=== PATIENT | female | born 1945 | race Caucasian/White ===

== ENCOUNTER → 2017-07-20 | Outpatient (CLI) | payer OTHER ==
--- NOTE | 2017-07-20 14:14 | MAMMOGRAPHY REPORT ---
BILATERAL DIGITAL SCREENING MAMMOGRAM WITH CAD: 07/20/2017 CLINICAL HISTORY: Routine screening. Patient has no complaints. TECHNIQUE: Current study was also evaluated with a Computer Aided Detection (CAD) system. Bilateral CC and MLO views were obtained. COMPARISON: Comparison is made to exams dated: 07/19/2016 mammogram, 07/15/2015 mammogram, 07/11/2014 m ammogram, 07/03/2013 mammogram, 07/04/2012 ultrasound, and 07/04/2012 mammogram - [facility]. BREAST COMPOSITION: There are scattered areas of fibroglandular density in both breasts. FINDINGS: No suspicious masses, calcifications, or areas of architectural distortion are noted in ei ther breast. There has been no significant interval change compared to prior exams. Focal asymmetry in the right medial breast is stable dating back to at least 2007 exam. IMPRESSION: ACR BI-RADS CATEGORY 2: BENIGN There is no mammographic evidence of malignancy. A 1 year screening mammogram is recommended. The pa tient will receive written notification of the results. Approximately 10% of breast cancers are not detected with mammography. A negative mammographic report should not delay biopsy if a clinically suggestive mass is present. Amparo Crow M.D. /:07/20/2017 09:59:47 Control Room Tender: Yvonne MOORER, M, [facility] letter sent: Normal 1/2 BI-RADS Code: ACR BI-RADS Category 2: Benign
== END | disposition home or self-care (01) ==
LOC: C.MAMM 09:14
PROVIDERS: ATTEND Family Medicine
DX: Z12.31 Encounter for screening mammogram for malignant neoplasm of breast (principal)

== ENCOUNTER 2018-01-12 15:49 | Observation (INO) | payer OTHER ==
[~2018-01-12] VITALS: Ht 157.5 cm; Wt 73.1 kg
[2018-01-12] MEDS ORDERED: LABETALOL HCL IV 5 MG/ML 20ML IV ONE (16:07)
--- NOTE | 2018-01-12 16:17 | EMERGENCY ROOM VISIT NOTE ---
History Report prepared by Gregoria: Donnie Santana Under the Supervision of: Dr. Wood Alvarado M.D. First contact with patient: 15:58 Chief Complaint: STROKE SYMPTOMS Stated Complaint: MEMORY LOSS OVER TRAMATIC NEWS History of Present Illness The patient is a 72 year old female who presents to the Emergency Room with complaints of constant memory loss for the past two hours. The patient's daughters state that the patient's nephew today, and the patient found out around 1115, and then she drove to her sister's house during which she made multiple phone calls. When she got there she was acting normally, though when she got home around 1400 the patient did not remember driving, where she was, what she was doing, and she does not remember her nephew dying. The daughters state that the patient has been persistently asking if her nephew has . The daughters state that the patient's memory is improved with calming down, though when she gets worked up her memory gets worse again. The daughters state that the patient has not had any issues with her speech or with facial drooping. She does not have any weakness, though she feels "foggy". The patient does not have any significant past medical history, and she has been doing well the past few days. The daughters state that the patient has never had a problem with grief in the past. The patient is not on any blood thinners. Source of History: patient, family Onset: two hours ago Position: other (global) Quality: other (memory loss) Timing: constant Modifying Factors (Worsening): other (getting worked up) Modifying Factors (Relieving): other (calming down) Associated Symptoms: No weakness Note: Associated symptoms: Feels foggy Review of Systems See HPI for pertinent positives & negatives. A total of 10 systems reviewed and were otherwise negative. Past Medical & Surgical Medical Problems: (1) Amnesia Social History Smoking Status: Never Smoker Marital Status: Housing Status: lives with family Occupation Status: retired Current/Historical Medications Scheduled Aspirin (Aspirin Ec), 81 MG PO DAILY Atorvastatin (Lipitor), 10 MG PO DAILY Loratadine (Claritin), 10 MG PO DAILY Multivitamins/Minerals (Mvi With Minerals), 1 TAB PO DAILY Allergies Coded Allergies: Mercury (Verified Allergy, Intermediate, URBINA EYES, 01/12/18) Physical Exam Vital Signs Date Time Temp Pulse Resp B/P (MAP) Pulse Ox O2 Delivery O2 Flow Rate FiO2 01/12/18 18:49 68 175/91 96 Room Air 01/12/18 18:01 69 20 183/92 95 Room Air 01/12/18 17:41 72 20 182/94 95 Room Air 01/12/18 17:16 69 20 169/89 92 Room Air 01/12/18 17:01 70 20 200/114 94 Room Air 01/12/18 16:46 65 18 195/103 91 Room Air 01/12/18 16:28 94 Room Air 01/12/18 16:24 63 20 193/88 94 Room Air 01/12/18 16:02 76 01/12/18 15:54 36.7 69 18 229/97 96 Room Air Physical Exam GENERAL: Patient is in no acute distress. HEENT: No acute trauma, normocephalic atraumatic, mucous membranes moist, no nasal congestion, no scleral icterus. NECK: No stridor, no adenopathy, no meningismus, trachea is midline. LUNGS: Clear to auscultation bilaterally, no wheeze, no rhonchi, breath sounds equal. HEART: Without murmurs gallops or rubs, regular rate and rhythm. ABDOMEN: Soft, nontender, bowel sounds positive, no hernias, no peritonitis. EXTREMITIES: No cyanosis or edema, full range of motion of all the joints without pain or difficulty, no signs for acute trauma. NEUROLOGIC: Does not know the day, the year, or the President. Was able to state her name. No pronator drift or cerebellar dysfunction. No speech slur or facial droop. SKIN: No rash, no jaundice, no diaphoresis. Medical Decision & Procedures ER Provider Diagnostic Interpretation: Radiology results as stated below per my review and radiologist interpretation: CT OF THE HEAD WITHOUT CONTRAST CLINICAL HISTORY: Acute memory loss. COMPARISON STUDY: No previous studies for comparison. CT DOSE: 537.48 mGy.cm TECHNIQUE: Helical axial images of the head were obtained without IV contrast. Automated exposure control was utilized for the study. A dose lowering technique was utilized adhering to the principles of ALARA. FINDINGS: No acute intracranial hemorrhage, midline shift or mass effect is present. Ventricular system is normal. Basilar cisterns are patent. There are no extra-axial collections. Nesbitt-white differentiation is maintained. There are no findings to suggest acute dural sinus thrombosis or acute territorial infarct. There are no significant calvarial abnormalities. Visualized portions of the sinuses and the mastoid air cells are clear. IMPRESSION: No acute intracranial findings. Electronically signed by: Juan Kimble M.D. 01/12/2018 4:22 PM Dictated Date/Time: 01/12/2018 4:20 PM Laboratory Results 01/12/18 16:11 Red Blood Count 4.31, Mean Corpuscular Volume 93.7, Mean Corpuscular Hemoglobin 33.2, Mean Corpuscular Hemoglobin Concent 35.4, Mean Platelet Volume 10.5, Neutrophils (%) (Auto) 73.7, Lymphocytes (%) (Auto) 18.9, Monocytes (%) (Auto) 6.1, Eosinophils (%) (Auto) 0.7, Basophils (%) (Auto) 0.2, Neutrophils # (Auto) 4.09, Lymphocytes # (Auto) 1.05, Monocytes # (Auto) 0.34, Eosinophils # (Auto) 0.04, Basophils # (Auto) 0.01 01/12/18 16:11 Test 01/12/18 16:05 01/12/18 16:11 01/12/18 16:15 01/12/18 18:15 Bedside Glucose 125 mg/dl (70-90) White Blood Count 5.55 K/uL (4.8-10.8) Red Blood Count 4.31 M/uL (4.2-5.4) Hemoglobin 14.3 g/dL (12.0-16.0) Hematocrit 40.4 % (37-47) Mean Corpuscular Volume 93.7 fL (80-100) Mean Corpuscular Hemoglobin 33.2 pg (25-34) Mean Corpuscular Hemoglobin Concent 35.4 g/dl (32-36) Platelet Count 271 K/uL (130-400) Mean Platelet Volume 10.5 fL (7.4-10.4) Neutrophils (%) (Auto) 73.7 % Lymphocytes (%) (Auto) 18.9 % Monocytes (%) (Auto) 6.1 % Eosinophils (%) (Auto) 0.7 % Basophils (%) (Auto) 0.2 % Neutrophils # (Auto) 4.09 K/uL (1.4-6.5) Lymphocytes # (Auto) 1.05 K/uL (1.2-3.4) Monocytes # (Auto) 0.34 K/uL (0.11-0.59) Eosinophils # (Auto) 0.04 K/uL (0-0.5) Basophils # (Auto) 0.01 K/uL (0-0.2) RDW Standard Deviation 42.3 fL (36.4-46.3) RDW Coefficient of Variation 12.4 % (11.5-14.5) Immature Granulocyte % (Auto) 0.4 % Immature Granulocyte # (Auto) 0.02 K/uL (0.00-0.02) Prothrombin Time 10.1 SECONDS (9.0-12.0) Prothromb Time International Ratio 1.0 (0.9-1.1) Activated Partial Thromboplast Time 24.9 SECONDS (21.0-31.0) Partial Thromboplastin Ratio 1.0 Est Creatinine Clear Calc Drug Dose 41.2 ml/min Estimated GFR () 54.1 Estimated GFR (Non- 46.7 BUN/Creatinine Ratio 16.7 (10-20) Calcium Level 9.6 mg/dl (8.5-10.1) Magnesium Level 2.4 mg/dl (1.8-2.4) Total Bilirubin 0.9 mg/dl (0.2-1) Direct Bilirubin 0.2 mg/dl (0-0.2) Aspartate Amino Transf (AST/SGOT) 19 U/L (15-37) Alanine Aminotransferase (ALT/SGPT) 29 U/L (12-78) Alkaline Phosphatase 95 U/L (45-117) Total Creatine Kinase 234 U/L (26-192) Creatine Kinase MB 2.2 ng/ml (0.5-3.6) Creatine Kinase MB Ratio 0.9 (0-3.0) Troponin I 0.015 ng/ml (0-0.045) Total Protein 8.0 gm/dl (6.4-8.2) Albumin 4.1 gm/dl (3.4-5.0) Bedside Hemoglobin 14.3 g/dl (12.0-16.0) Bedside Hematocrit 42 % (37-47) Bedside Sodium 141 mEq/L (135-144) Bedside Potassium 3.8 mEq/L (3.3-5.0) Bedside Chloride 104 mEq/L (101-112) Bedside Total CO2 25 mEq/l (24-31) Anion Gap 17.0 mmol/L (16-25) Bedside Blood Urea Nitrogen 21 mg/dl (7-18) Bedside Creatinine 1.1 mg/dl (0.6-1.3) Bedside Glucose (other) 133 mg/dl (70-99) Bedside Ionized Calcium (Belkys) 1.19 mmol/l (1.12-1.32) Urine Color YELLOW Urine Appearance CLEAR (CLEAR) Urine pH 6.0 (4.5-7.5) Urine Specific [place] 1.011 (1.000-1.030) Urine Protein NEG (NEG) Urine Glucose (UA) NEG (NEG) Urine Ketones NEG (NEG) Urine Occult Blood NEG (NEG) Urine Nitrite NEG (NEG) Urine Bilirubin NEG (NEG) Urine Urobilinogen NEG (NEG) Urine Leukocyte Esterase NEG (NEG) Urine Opiates Screen NEG (NEG) Urine Methadone, Qualitative NEG (NEG) Urine Barbiturates NEG (NEG) Urine Phencyclidine (PCP) Level NEG (NEG) Ur Amphetamine/Methamphetamine NEG (NEG) MDMA (Ecstasy) Screen NEG (NEG) Urine Benzodiazepines Screen NEG (NEG) Urine Cocaine Metabolite NEG (NEG) Urine Marijuana (THC) NEG (NEG) Laboratory results reviewed by me. Medications Administered Medications (Trade) Dose Ordered Sig/Billie Route Start Time Stop Time Status Last Admin Dose Admin Labetalol HCl (Normodyne IV) 5 mg STK-MED ONCE IV 01/12/18 16:07 01/12/18 16:08 DC 01/12/18 16:12 20 MG Hydralazine HCl (HydrALAZINE INJ) 10 mg NOW STAT IV 01/12/18 16:57 01/12/18 16:58 DC 01/12/18 17:02 10 MG Lorazepam (Ativan Inj) 0.5 mg NOW STAT IV 01/12/18 17:29 01/12/18 17:30 DC 01/12/18 17:41 0.5 MG Sodium Chloride 500 ml @ 999 mls/hr Q31M STAT IV 01/12/18 17:31 01/12/18 18:01 DC 01/12/18 17:41 999 MLS/HR Acetaminophen (Tylenol Tab) 1,000 mg NOW STAT PO 01/12/18 18:16 01/12/18 18:17 DC 01/12/18 18:31 1,000 MG ECG Per My Interpretation Indication: other (memory loss) Rate (beats per minute): 73 Rhythm: normal sinus Findings: other (Subtle ST depressions diffusely, no ST elevation, no PVC) ED Course 155: The patient was evaluated in room B1. A complete history and physical exam was performed. 1607: Labetalol 20mg IV 1612: I discussed the patient's case with Dr. Trevin Hernandez Stroke Neurology, and he thinks that this is likely a grief reaction. He is going to evaluate the patient via telemedecine. 165: Hydralazine HCl 10mg IV 165: I reevaluated the patient, and she was being evaluated by Dr. Zhong. 172: Ativan 0.5mg IV 173: I reassessed the patient, and I also talked with Dr. Zhong. I ordered Sodium Chloride 500 ml @ 999 mls/hr IV 181: Tylenol Tab 1000mg PO 185: I reevaluated the patient, and she was still having memory issues. I discussed the treatment plan with her and her family. She will be evaluated for further management. 1914: Discussed the patient's case with Dr. Rosario Dodson Hospitalist. The patient will be evaluated for further management. Medical Decision Differential diagnoses include: Stroke, grief reaction, hypertensive emergency/ urgency, infection, electrolyte imbalance, anemia, and UTI. There is no leukocytosis or concerning anemia. No significant electrolyte abnormality, kidney failure or hepatitis. EKG shows a sinus rhythm, no acute ischemia. Brain CT shows no acute bleed or mass effect. Urinalysis does not show infection. Urine tox is negative. On exam, the patient had issues with her memory, there was no speech slur, no focal motor deficit. Given the findings and presentation, a stroke alert was called. The patient was seen by the [facility] neurologist via telemedicine. At this point, TPA is not being recommended. The patient was felt to be suffering from a severe grief reaction and not a CVA. The patient received IV labetalol and IV hydralazine for her high blood pressure. She was given IV saline and some IV Ativan. She received oral Tylenol for a headache. The patient is improved although she still is having issues with her memory. As her symptoms have been persisting, a hospital stay was felt warranted. I did speak to the patient and case liner. The on-call hospitalist was consulted. Further workup for subtle stroke is required. Medication Reconcilliation Current Medication List: was personally reviewed by me Blood Pressure Screening Patient's blood pressure: Elevated blood pressure Monitored by the hospitalist Consults Time Called: 1608 Consulting Physician: Dr. Zhong - Stroke Neurology Returned Call: [phone] I discussed the patient's case with Dr. Trevin Hernandez Stroke Neurology, and he thinks that this is likely a grief reaction. He is going to evaluate the patient via telemedecine. Additional Consults: Time Called: 190 Consulted Physician: Dr. Rosario Dodson Hospitalist Returned Call: [phone] Additional Comments: Discussed the patient's case with Dr. Rosario Copeist. The patient will be evaluated for further management. Impression Primary Impression: Amnesia Additional Impression: Hypertension Scribe Attestation The scribe's documentation has been prepared under my direction and personally reviewed by me in its entirety. I confirm that the note above accurately reflects all work, treatment, procedures, and medical decision making performed by me. Departure Information Dispostion Being Evaluated By Hospitalist Referrals Marianne Landa D.O. (PCP) Patient Instructions [facility] Stroke History Time Last Known Well 2 hours ago Stroke t-PA Criteria Reviewed Does NOT meet criteria for t-PA Reason t-PA Not Given Treatment not indicated Problem Qualifiers
[2018-01-12 16:23] LABS: BASO % 0.2 %; BASO ABS # 0.01 K/uL (0-0.2); EOS % 0.7 %; EOS ABS # 0.04 K/uL (0-0.5); HEMATOCRIT 40.4 % (37-47); HEMOGLOBIN 14.3 g/dL (12.0-16.0); IG# 0.02 K/uL (0.00-0.02); LYMPH % 18.9 %; LYMPH ABS # 1.05 K/uL (1.2-3.4); MEAN CELL VOLUME 93.7 fL (80-100); MEAN CORPUSCULAR HEMOGLOBIN 33.2 pg (25-34); MEAN CORPUSCULAR HGB CONC 35.4 g/dl (32-36); MEAN PLATELET VOLUME 10.5 fL (7.4-10.4); MONO % 6.1 %; MONO ABS # 0.34 K/uL (0.11-0.59); NEUT % 73.7 %; NEUT ABS # 4.09 K/uL (1.4-6.5); PLATELET COUNT 271 K/uL (130-400); RED CELL DISTRIBUTION WIDTH CV 12.4 % (11.5-14.5); RED CELL DISTRIBUTION WIDTH SD 42.3 fL (36.4-46.3); WHITE BLOOD COUNT 5.55 K/uL (4.8-10.8)
--- NOTE | 2018-01-12 16:23 | DIAGNOSTIC IMAGING REPORT ---
CT OF THE HEAD WITHOUT CONTRAST CLINICAL HISTORY: Acute memory loss. COMPARISON STUDY: No previous studies for comparison. CT DOSE: 537.48 mGy.cm TECHNIQUE: Helical axial images of the head were obtained without IV contrast. Automated exposure control was utilized for the study. A dose lowering technique was utilized adhering to the principles of ALARA. FINDINGS: No acute intracranial hemorrhage, midline shift or mass effect is present. Ventricular system is normal. Basilar cisterns are patent. There are no extra-axial collections. Nesbitt-white differentiation is maintained. There are no findings to suggest acute dural sinus thrombosis or acute territorial infarct. There are no significant calvarial abnormalities. Visualized portions of the sinuses and the mastoid air cells are clear. IMPRESSION: No acute intracranial findings. Electronically signed by: Juan Kimble M.D. 01/12/2018 4:22 PM Dictated Date/Time: 01/12/2018 4:20 PM
[2018-01-12 16:27] LABS: ISTAT CREATININE 1.1 mg/dl (0.6-1.3); ISTAT IONIZED CALCIUM 1.19 mmol/l (1.12-1.32); ISTAT POTASSIUM 3.8 mEq/L (3.3-5.0)
[2018-01-12 16:32] LABS: PTT PATIENT 24.9 SECONDS (21.0-31.0)
[2018-01-12 16:50] LABS: CALCIUM 9.6 mg/dl (8.5-10.1); CREATININE 1.16 mg/dl (0.60-1.20); POTASSIUM 3.7 mmol/L (3.5-5.1)
[2018-01-12 16:53] LABS: ALBUMIN 4.1 gm/dl (3.4-5.0)
[2018-01-12 16:55] LABS: CKMB 2.2 ng/ml (0.5-3.6)
[2018-01-12] MEDS ORDERED: HydrALAZINE HCL 20 MG/ML VIAL IV STA (16:57)
[2018-01-12] MEDS ORDERED: LORAZEPAM 2 MG/ML 1 ML VIAL IV STA (17:29)
[2018-01-12] MEDS ORDERED: SODIUM CHLORIDE 0.9% 500ML 500 ML IV STA (17:31)
[2018-01-12] MEDS ORDERED: ACETAMINOPHEN 500 MG TAB PO STA (18:16)
[2018-01-12] MEDS ORDERED: ASPI81TA28 PO (18:35)
[2018-01-12] MEDS ORDERED: ATOR10TA82 PO (18:35)
[2018-01-12] MEDS ORDERED: MULT-513 PO (18:35)
[2018-01-12] MEDS ORDERED: CLR10 PO (18:35)
[2018-01-12] MEDS ORDERED: PHARMACIST DISCHARGE MED REC CONSULT PRN (20:00)
[2018-01-12] MEDS ORDERED: POLYETHYLENE (MIRALAX) 17 GM PACK PO PRN (20:00)
[2018-01-12] MEDS ORDERED: ONDANSETRON INJ 2 MG/ML 2 ML VIAL IV PRN (20:00)
[2018-01-12] MEDS ORDERED: ACETAMINOPHEN 325 MG TAB PO PRN (20:00)
--- NOTE | 2018-01-12 20:09 | History and Physical ---
History & Physical Date & Time of Service: Jan 12, 2018 at 20:09 Chief Complaint: Memory Loss Over Tramatic News Primary Care Physician: Marianne Landa D.O. History of Present Illness Source: patient, family, clinic records Patient is a 72 yo female who presented to the ER for confusion and amnesia that occurred earlier today at 13:45 PM. The patient was her usual self this morning, was called by her sister this morning to inform her that the patient's nephew was found unexpectedly in his apartment today, and the patient subsequently got in the car and drove to her sister's home to be with family. The patient's daughter states she met there as well, and at 13:45 they were planning to leave when the patient turned to her daughter and was confused about how she got there and whether she drove or not. The daughter states the patient drove back to her home with her daughter driving closely in another vehicle to monitor the patient, and that once they came to the patient's home the patient could not recall any events from the day, she kept asking what happened and could not retain the fact that her nephew was and the events of today and yesterday could not be recalled. In the ER she was evaluated by [facility] and does not appear to have a CVA, but due to the persistent amnesia and the inability to recall events from today and the last few days, the patient was referred for admission and further workup. Patient only complains of a headache and some photophobia which is unusual for the patient. She was also found to have elevated BP which is not usual for the patient. Otherwise she has been in her usual health, no recent illness or sick contacts, no recent medication changes. Past Medical/Surgical History PMHx: Dyslipidemia SurgHx: Colonoscopy Family History Father: DM, CAD Mother: Cancer Social History Smoking Status: Never Smoker Smokeless Tobacco Use: No Alcohol Use: occasionally Drug Use: none Marital Status: Housing status: lives with family Occupational Status: retired Immunizations History of Influenza Vaccine: Yes History of Tetanus Vaccine?: Yes Multi-Drug Resistant Organisms History of MDRO: No Allergies Coded Allergies: Mercury (Verified Allergy, Intermediate, URBINA EYES, 01/12/18) Home Medications Scheduled Aspirin (Aspirin Ec), 81 MG PO DAILY Atorvastatin (Lipitor), 10 MG PO DAILY Loratadine (Claritin), 10 MG PO DAILY Multivitamins/Minerals (Mvi With Minerals), 1 TAB PO DAILY Review of Systems Constitutional: No fever, No chills, No sweats, No weight loss Eyes: No worsening of vision, No eye pain ENT: No hearing loss, No sore throat, No trouble swallowing Respiratory: No cough, No sputum, No wheezing, No shortness of breath Cardiovascular: No chest pain, No edema, No palpitations Abdomen: No pain, No nausea, No vomiting, No diarrhea, No constipation Musculoskeletal: No joint pain, No muscle pain, No problem reported Genitourinary - Female: No dysuria, No urinary frequency, No urinary urgency, No urinary incontinence Neurologic: + memory loss, No paralysis, No weakness, No numbness/tingling, No balance problems Psychiatric: No depression symptoms, No anxiety, No insomnia Endocrine: No fatigue, No excessive thirst, No excessive urination Hematologic / Lymphatic: No abnormal bleeding/bruising, No clotting problems, No problem reported Integumentary: No rash, No itch, No new/changing skin lesions Physical Exam Vital Signs Date Time Temp Pulse Resp B/P (MAP) Pulse Ox O2 Delivery O2 Flow Rate FiO2 01/12/18 18:49 68 175/91 96 Room Air 01/12/18 18:01 69 20 183/92 95 Room Air 01/12/18 17:41 72 20 182/94 95 Room Air 01/12/18 17:16 69 20 169/89 92 Room Air 01/12/18 17:01 70 20 200/114 94 Room Air 01/12/18 16:46 65 18 195/103 91 Room Air 01/12/18 16:28 94 Room Air 01/12/18 16:24 63 20 193/88 94 Room Air 01/12/18 16:02 76 01/12/18 15:54 36.7 69 18 229/97 96 Room Air General Appearance: WD/WN, no apparent distress Head: normocephalic, atraumatic Eyes: PERRL, EOMI, sclerae normal (conjunctivae clear) ENT: hearing grossly normal Neck: supple, no adenopathy, thyroid normal, no JVD, no carotid bruits, trachea midline Respiratory/Chest: chest non-tender, lungs clear, normal breath sounds, no respiratory distress Cardiovascular: regular rate, rhythm, no edema, no gallop, no JVD, no murmur Abdomen/GI: normal bowel sounds, non tender, soft, no organomegaly (no hepatosplenomegaly) Back: normal inspection, no CVA tenderness Extremities/Musculoskelatal: no calf tenderness, normal capillary refill, no pedal edema, non-tender Neurologic/Psych: manager of finance II-XII nml as tested, no motor/sensory deficits, alert, normal mood/affect, oriented x 3 Skin: normal color, warm/dry, no rash Diagnostics Laboratory Results Results Past 24 Hours Test 01/12/18 16:05 01/12/18 16:11 01/12/18 16:15 01/12/18 18:15 Range/Units Bedside Glucose 125 70-90 mg/dl White Blood Count 5.55 4.8-10.8 K/uL Red Blood Count 4.31 4.2-5.4 M/uL Hemoglobin 14.3 12.0-16.0 g/dL Hematocrit 40.4 37-47 % Mean Corpuscular Volume 93.7 80-100 fL Mean Corpuscular Hemoglobin 33.2 25-34 pg Mean Corpuscular Hemoglobin Concent 35.4 32-36 g/dl Platelet Count 271 130-400 K/uL Mean Platelet Volume 10.5 7.4-10.4 fL Neutrophils (%) (Auto) 73.7 % Lymphocytes (%) (Auto) 18.9 % Monocytes (%) (Auto) 6.1 % Eosinophils (%) (Auto) 0.7 % Basophils (%) (Auto) 0.2 % Neutrophils # (Auto) 4.09 1.4-6.5 K/uL Lymphocytes # (Auto) 1.05 1.2-3.4 K/uL Monocytes # (Auto) 0.34 0.11-0.59 K/uL Eosinophils # (Auto) 0.04 0-0.5 K/uL Basophils # (Auto) 0.01 0-0.2 K/uL RDW Standard Deviation 42.3 36.4-46.3 fL RDW Coefficient of Variation 12.4 11.5-14.5 % Immature Granulocyte % (Auto) 0.4 % Immature Granulocyte # (Auto) 0.02 0.00-0.02 K/uL Prothrombin Time 10.1 9.0-12.0 SECONDS Prothromb Time International Ratio 1.0 0.9-1.1 Activated Partial Thromboplast Time 24.9 21.0-31.0 SECONDS Partial Thromboplastin Ratio 1.0 Sodium Level 139 136-145 mmol/L Potassium Level 3.7 3.5-5.1 mmol/L Chloride Level 106 98-107 mmol/L Carbon Dioxide Level 23 21-32 mmol/L Anion Gap 10.0 17.0 16-25 mmol/L Blood Urea Nitrogen 19 7-18 mg/dl Creatinine 1.16 0.60-1.20 mg/dl Est Creatinine Clear Calc Drug Dose 41.2 ml/min Estimated GFR () 54.1 Estimated GFR (Non- 46.7 BUN/Creatinine Ratio 16.7 10-20 Random Glucose 128 70-99 mg/dl Calcium Level 9.6 8.5-10.1 mg/dl Magnesium Level 2.4 1.8-2.4 mg/dl Total Bilirubin 0.9 0.2-1 mg/dl Direct Bilirubin 0.2 0-0.2 mg/dl Aspartate Amino Transf (AST/SGOT) 19 15-37 U/L Alanine Aminotransferase (ALT/SGPT) 29 12-78 U/L Alkaline Phosphatase 95 45-117 U/L Total Creatine Kinase 234 26-192 U/L Creatine Kinase MB 2.2 0.5-3.6 ng/ml Creatine Kinase MB Ratio 0.9 0-3.0 Troponin I 0.015 0-0.045 ng/ml Total Protein 8.0 6.4-8.2 gm/dl Albumin 4.1 3.4-5.0 gm/dl Bedside Hemoglobin 14.3 12.0-16.0 g/dl Bedside Hematocrit 42 37-47 % Bedside Sodium 141 135-144 mEq/L Bedside Potassium 3.8 3.3-5.0 mEq/L Bedside Chloride 104 101-112 mEq/L Bedside Total CO2 25 24-31 mEq/l Bedside Blood Urea Nitrogen 21 7-18 mg/dl Bedside Creatinine 1.1 0.6-1.3 mg/dl Bedside Glucose (other) 133 70-99 mg/dl Bedside Ionized Calcium (Belkys) 1.19 1.12-1.32 mmol/l Urine Color YELLOW Urine Appearance CLEAR CLEAR Urine pH 6.0 4.5-7.5 Urine Specific [place] 1.011 1.000-1.030 Urine Protein NEG NEG Urine Glucose (UA) NEG NEG Urine Ketones NEG NEG Urine Occult Blood NEG NEG Urine Nitrite NEG NEG Urine Bilirubin NEG NEG Urine Urobilinogen NEG NEG Urine Leukocyte Esterase NEG NEG Urine Opiates Screen NEG NEG Urine Methadone, Qualitative NEG NEG Urine Barbiturates NEG NEG Urine Phencyclidine (PCP) Level NEG NEG Ur Amphetamine/Methamphetamine NEG NEG MDMA (Ecstasy) Screen NEG NEG Urine Benzodiazepines Screen NEG NEG Urine Cocaine Metabolite NEG NEG Urine Marijuana (THC) NEG NEG Impression Assessment and Plan AMS: RETROGRADE AMNESIA: -CT head negative -telestroke eval by [facility] did not demonstrate high suspicion for stroke -due to persistence of symptoms, patient to be admitted for further work up -MRI brain -carotid doppler -TTE -lipid panel -continue on ASA and statin; can evaluate need for plavix depending on additional workup if patient is found to have a TIA or CVA -no history of HTN, although BP was elevated on arrival -Neuro consult -PRN analgesia for headache DYSLIPIDEMIA: -continue statin -check lipids CHRONIC RHINITIS: -continue flonase and claritin Level of Care Telemetry Advanced Directives Existing Advance Directive: Yes Resuscitation Status FULL RESUSCITATION (If there is a meaningful chance of recovery only) VTE Prophylaxis VTE Risk Assessment Done? Y/N: Yes Risk Level: Moderate
[2018-01-12] MEDS ORDERED: IV FLUIDS COMPLETED PRN (20:45)
--- NOTE | 2018-01-12 21:00 | DIAGNOSTIC IMAGING REPORT ---
CAROTID ARTERY ULTRASOUND CLINICAL HISTORY: Stroke COMPARISON STUDY: None. TECHNIQUE: Real-time, grayscale, and color Doppler sonography of the carotid and vertebral arteries was performed. Images were viewed in the transverse and longitudinal planes. FINDINGS: There is mild atherosclerotic plaque. Velocity measurements are listed below. COMMON CAROTID PEAK SYSTOLIC VELOCITY (CM/S): RIGHT 125 LEFT 133 ICA PEAK SYSTOLIC VELOCITY (CM/S): RIGHT 87 LEFT 83 Systolic ratios between the internal to common carotid arteries are normal. Antegrade flow is seen in the vertebral arteries. The external carotid arteries are patent. Elevated peak systolic velocity of 219 cm for second within the proximal left external carotid artery is noted. Blood pressure in the right arm measured 142/74. Blood pressure in the left arm measured 143/63. IMPRESSION: 1. No evidence of a hemodynamically significant stenosis within the bilateral common carotid and internal carotid arteries. 2. Equivocal stenosis of the proximal left external carotid artery. This may be artifactual. Electronically signed by: Juan Kmible M.D. 01/12/2018 8:59 PM Dictated Date/Time: 01/12/2018 8:55 PM
--- NOTE | 2018-01-12 21:24 | DIAGNOSTIC IMAGING REPORT ---
MRI OF THE BRAIN WITHOUT CONTRAST CLINICAL HISTORY: Stroke. Acute memory loss. COMPARISON STUDY: Head CT performed earlier today. TECHNIQUE: Utilizing a 1.5 Charlene magnet and dedicated coil, multiplanar, multiecho imaging of the brain was performed without IV contrast. FINDINGS: There are no foci of restricted diffusion to suggest acute infarct. No acute intracranial hemorrhage, midline shift or mass effect is present. Mild atrophy is noted. Ventricular system is normal for age. Basilar cisterns are patent. There are no extra-axial collections. Flow-voids for the major intracranial vessels are present. No intracranial mass is identified on this unenhanced examination. Minimal white matter T2 hyperintense foci suggest minimal small vessel disease. Orbits, sinuses and mastoid air cells are unremarkable. IMPRESSION: 1. No acute intracranial findings. 2. Mild atrophy and minimal small vessel disease. Electronically signed by: Juan Kimble M.D. 01/12/2018 9:22 PM Dictated Date/Time: 01/12/2018 9:19 PM
[2018-01-12 22:18] VITALS: BP 171/80; PULSE 62; TEMP 36.9; O2SAT 97; Ht 157.5 cm; Wt 73.1 kg
[2018-01-12 23:21] VITALS: BP 146/73; PULSE 58; TEMP 36.7; O2SAT 96
[2018-01-12] MEDS: HEPARIN SOD 5000 UNIT/0.5 ML CARP SQ SCH (23:22)
[2018-01-13 03:37] VITALS: BP 128/69; PULSE 58; TEMP 37; O2SAT 100
[2018-01-13] MEDS: HEPARIN SOD 5000 UNIT/0.5 ML CARP SQ SCH ×2 (06:00→14:00)
[2018-01-13 06:47] LABS: HEMOGLOBIN A1C 5.6 % (4.5-5.6)
[2018-01-13 06:48] LABS: BASO % 0.3 %; BASO ABS # 0.01 K/uL (0-0.2); EOS % 1.9 %; EOS ABS # 0.07 K/uL (0-0.5); HEMATOCRIT 36.6 % (37-47); HEMOGLOBIN 12.6 g/dL (12.0-16.0); IG# 0.01 K/uL (0.00-0.02); LYMPH % 30.1 %; MEAN CELL VOLUME 95.6 fL (80-100); MEAN CORPUSCULAR HEMOGLOBIN 32.9 pg (25-34); MEAN CORPUSCULAR HGB CONC 34.4 g/dl (32-36); MONO % 9.6 %; MONO ABS # 0.35 K/uL (0.11-0.59); NEUT % 57.8 %; NEUT ABS # 2.12 K/uL (1.4-6.5); PLATELET COUNT 242 K/uL (130-400); RED CELL DISTRIBUTION WIDTH CV 12.7 % (11.5-14.5); RED CELL DISTRIBUTION WIDTH SD 44.3 fL (36.4-46.3); WHITE BLOOD COUNT 3.66 K/uL (4.8-10.8)
[2018-01-13 07:28] LABS: CALCIUM 8.5 mg/dl (8.5-10.1); CREATININE 1.01 mg/dl (0.60-1.20); POTASSIUM 3.8 mmol/L (3.5-5.1)
[2018-01-13 07:43] VITALS: BP 156/77; PULSE 57; TEMP 37.1; O2SAT 57; O2SAT 97
--- NOTE | 2018-01-13 08:41 | ECHOCARDIOGRAM REPORT ---
*NOTICE TO RECEIVING [employer] This information is strictly Confidential and protected under [place] law. [place] law prohibits you from making any further disclosure of this information unless further disclosure is expressly permitted by the written consent of the person to whom it pertains or is authorized by law. A general authorization for the release of medical or other information is not sufficient for this purpose. Hospital accepts no responsibility if the information is made available to any other person, INCLUDING THE PATIENT. Interpretation Summary * Name: NAOMI PARIKH Study Date: 01/13/2018 06:46 AM BP: 128/69 mmHg * Patient Location: C.2T\S\S238\S\1 HR: 64 * : 1945 (M/d/yyyy) Gender: Female Height: 62 in * Age: 72 yrs Ethnicity: [place] Weight: 167 lb * Ordering Physician: Thuy Ponce * Referring Physician: Self, Referred * Performed By: [facility] * * Reason For Study: STROKE * BSA: 1.8 m2 * -- Conclusions -- * Normal LV chamber size with mild concentric LVH. * Normal LV systolic function, EF 55-60%. * No segmental left ventricular wall motion abnormalities are noted. * Grade I diastolic dysfunction. * Aortic valve sclerosis mild, without significant aortic valvular stenosis. * Intact interatrial septum. Procedure Details * A complete two-dimensional transthoracic echocardiogram was performed (2D, M-mode, Doppler and color flow Doppler). * A saline contrast injection was performed to assess for cardiac shunting. * The injection was performed through an intravenous line in the left arm. * The attending nurse who injected the saline contrast was SANDRA RUSH, RN. * A total of 20 cc of agitated saline was given. Left Ventricle * The left ventricle is normal in size. * There is mild concentric left ventricular hypertrophy. * Left ventricular systolic function is normal. * No segmental left ventricular wall motion abnormalities are noted. * Ejection Fraction = 55-60%. * The left ventricular wall motion is normal. Right Ventricle * The right ventricular cavity size is normal (basal dimension <4.2 cm in right ventricular apical 4-chamber view). * The right ventricular systolic function is normal as assessed by tricuspid annular plane systolic excursion (TAPSE) (normal >1.5 cm). Atria * The left atrial size is normal. * Right atrial size is normal. * The interatrial septum is intact with no evidence for an atrial septal defect. Mitral Valve * The mitral valve leaflets appear thickened, but open well. * There is borderline mitral valve prolapse. * Prolapse of the posterior mitral leaflet(s). * There is no mitral valve stenosis. * There is no mitral regurgitation noted. Tricuspid Valve * The tricuspid valve is normal in structure and function. Aortic Valve * The aortic valve is trileaflet. * Aortic valve sclerosis mild, without significant aortic valvular stenosis. * There is no significant aortic regurgitation. Pulmonic Valve * The pulmonary valve is not well seen, but the Doppler examination is normal without significant regurgitation or stenosis. Great Vessels * The aortic root is normal size. Pericardium/Pleural * There is no pericardial effusion. Left Ventricular Diastolic Function * Grade I diastolic dysfunction, (abnormal relaxation pattern). MMode 2D Measurements and Calculations IVSd 1.2 cm IVSs 1.7 cm LVIDd 4.2 cm LVIDs 3.3 cm LVPWd 1.1 cm LVPWs 1.2 cm IVS/LVPW 1.1 FS 22.3 % EDV(Teich) 79.2 ml ESV(Teich) 43.3 ml EF(Teich) 45.3 % EDV(cubed) 74.9 ml ESV(cubed) 35.1 ml EF(cubed) 53.1 % % IVS thick 41.2 % % LVPW thick 5.6 % LV mass(C)d 176.2 grams LV mass(C)dI 99.5 grams/m\S\2 LV mass(C)s 171.4 grams LV mass(C)sI 96.8 grams/m\S\2 SV(Teich) 35.9 ml SI(Teich) 20.3 ml/m\S\2 SV(cubed) 39.7 ml SI(cubed) 22.4 ml/m\S\2 Ao root diam 2.5 cm Ao root area 5.0 cm\S\2 LA dimension 3.2 cm LA/Ao 1.3 LVOT diam 1.9 cm LVOT area 2.9 cm\S\2 LVAd ap4 26.0 cm\S\2 LVLd ap4 7.5 cm EDV(MOD-sp4) 72.7 ml EDV(sp4-el) 76.2 ml LVAs ap4 18.2 cm\S\2 LVLs ap4 6.7 cm ESV(MOD-sp4) 40.1 ml ESV(sp4-el) 41.7 ml EF(MOD-sp4) 44.8 % EF(sp4-el) 45.3 % LVAd ap2 22.6 cm\S\2 LVLd ap2 7.0 cm EDV(MOD-sp2) 59.6 ml EDV(sp2-el) 62.2 ml LVAs ap2 15.2 cm\S\2 LVLs ap2 6.1 cm ESV(MOD-sp2) 32.0 ml ESV(sp2-el) 32.6 ml EF(MOD-sp2) 46.3 % EF(sp2-el) 47.6 % LVLd %diff -7.47 % EDV(MOD-bp) 68.5 ml LVLs %diff -11.17 % ESV(MOD-bp) 37.8 ml EF(MOD-bp) 44.8 % SV(MOD-sp4) 32.6 ml SI(MOD-sp4) 18.4 ml/m\S\2 SV(MOD-sp2) 27.5 ml SI(MOD-sp2) 15.6 ml/m\S\2 SV(MOD-bp) 30.7 ml SI(MOD-bp) 17.3 ml/m\S\2 SV(sp4-el) 34.5 ml SI(sp4-el) 19.5 ml/m\S\2 SV(sp2-el) 29.6 ml SI(sp2-el) 16.7 ml/m\S\2 Doppler Measurements and Calculations MV E max diane 78.1 cm/sec MV A max diane 85.4 cm/sec MV E/A 0.91 MV P1/2t max diane 96.4 cm/sec MV P1/2t 124.8 msec MVA(P1/2t) 1.8 cm\S\2 MV dec slope 226.2 cm/sec\S\2 MV dec time 0.38 sec Ao V2 max 149.3 cm/sec Ao max PG 8.9 mmHg Ao max PG (full) 3.6 mmHg SHIRIN(V,A) 2.3 cm\S\2 SHIRIN(V,D) 2.3 cm\S\2 LV V1 max PG 5.3 mmHg LV V1 max 115.0 cm/sec MR max diane 505.9 cm/sec MR max PG 102.4 mmHg PA V2 max 105.9 cm/sec PA max PG 4.5 mmHg PI max diane 180.5 cm/sec PI max PG 13.0 mmHg PI dec slope 214.2 cm/sec\S\2 PI P1/2t 246.9 msec TR max diane 234.8 cm/sec
[2018-01-13] MEDS ORDERED: ASPIRIN 81 MG ECTAB PO SCH (09:00)
[2018-01-13] MEDS ORDERED: CEROVITE ADV FORMULA TAB PO SCH (09:00)
[2018-01-13] MEDS ORDERED: ATORVASTATIN 10 MG TAB PO SCH (09:00)
[2018-01-13] MEDS ORDERED: LORATADINE 10 MG TAB PO SCH (09:00)
[2018-01-13 12:07] VITALS: BP 145/75; PULSE 73; TEMP 36.7; O2SAT 98
--- NOTE | 2018-01-13 12:51 | Neurology Consultation ---
Neurology Consultation Date of Consultation: Jan 13, 2018. Attending Physician: Courtney Aragon M.D. Primary Care Physician: Marianne Landa D.O. Reason for Consultation: amnesia, possible grief reaction History of Present Illness Source: patient, family Iglesias is a 72 yo female who presented to the ER for confusion and amnesia that started around 1400 on 01/12. She was her normal self this am but received a call from her sister Thte sisters son was found unexpectedly in his apartment today. She drove her car to her sister's home. Her daughter came to the house as well and about 1400 they were planning to leave when the patient turned to her daughter and was confused about how she got there and didn't remember driving herself. She was able to drive back to her home with her daughter driving closely in another vehicle to monitor the patient, and that once they came to the patient's home the patient could not recall any events from the day, she kept repeating, "what happened" and couldn't recall her nephew was . In the ER she was evaluated by [facility] and does not appear to have a CVA, but due to the persistent amnesia and the inability to recall events from today and the last few days, the patient was referred for admission and further workup. She did have a headache and some photophobia which is unusual for the patient her blood pressure was also elevated to 200/ 105 which is unusual her blood pressure accord to her is usual good. Currently she does remember going to her sisters house and driving back home but she still does not remember being at home or coming into the hospital. Her memory started coming back around 10p that night. Denies CP, SOB , abdominal pain, one sided numbness tingling weakness, N, V, vision changes. Past Medical/Surgical History Medical Problems: (1) Hypertension Status: Acute Social History Smoking Status: Never smoker Smokeless Tobacco Use: No Alcohol Use: occasionally Drug Use: none Marital Status: Housing Status: lives with family Occupation Status: retired Allergies Coded Allergies: Mercury (Verified Allergy, Intermediate, URBINA EYES, 01/12/18) Current Inpatient Medications Current Inpatient Medications Medications (Trade) Dose Ordered Sig/Billie Route Start Time Stop Time Status Last Admin Dose Admin Miscellaneous Information (Pharmacist Discharge Med Rec Consult) 1 ea UD PRN N/A 01/12/18 20:00 02/11/18 19:59 Heparin Sodium (Porcine) (Heparin Sq 5000 Unit/0.5ml) 5,000 unit Q8 SQ 01/12/18 22:00 02/11/18 21:59 01/12/18 23:22 5,000 UNIT Acetaminophen (Tylenol Tab) 650 mg Q4H PRN PO 01/12/18 20:00 02/11/18 19:59 01/12/18 22:24 650 MG Ondansetron HCl (Zofran Inj) 4 mg Q6H PRN IV 01/12/18 20:00 02/11/18 19:59 Polyethylene (Miralax Powder Packet) 17 gm DAILY PRN PO 01/12/18 20:00 02/11/18 19:59 Aspirin (Ecotrin Tab) 81 mg DAILY PO 01/13/18 09:00 02/12/18 08:59 01/13/18 08:28 81 MG Atorvastatin Calcium (Lipitor Tab) 10 mg DAILY PO 01/13/18 09:00 02/12/18 08:59 01/13/18 08:28 10 MG Loratadine (Claritin Tab) 10 mg DAILY PO 01/13/18 09:00 02/12/18 08:59 01/13/18 08:28 10 MG Multivitamins/ Minerals (Multivitamin W/ Minerals Tab) 1 tab DAILY PO 01/13/18 09:00 02/12/18 08:59 01/13/18 08:28 1 TAB Miscellaneous (Iv Fluids Completed) 1 ea PRN PRN N/A 01/12/18 20:45 01/12/19 20:44 Physical Exam Vital Signs (Past 24 Hrs): Date Time Temp Pulse Resp B/P (MAP) Pulse Ox O2 Delivery O2 Flow Rate FiO2 01/13/18 12:07 36.7 73 20 145/75 (98) 98 Room Air 01/13/18 12:00 Room Air 01/13/18 07:43 37.1 57 16 156/77 (103) 97 Room Air 01/13/18 07:30 Room Air 01/13/18 04:00 Room Air 01/13/18 03:37 37.0 58 18 128/69 (88) 100 01/13/18 00:15 Room Air 01/12/18 23:21 36.7 58 17 146/73 (97) 96 Room Air 01/12/18 22:18 36.9 62 18 171/80 97 Room Air 01/12/18 20:00 63 16 145/81 94 Room Air 01/12/18 18:49 68 175/91 96 Room Air 01/12/18 18:01 69 20 183/92 95 Room Air 01/12/18 17:41 72 20 182/94 95 Room Air 01/12/18 17:16 69 20 169/89 92 Room Air 01/12/18 17:01 70 20 200/114 94 Room Air 01/12/18 16:46 65 18 195/103 91 Room Air 01/12/18 16:28 94 Room Air 01/12/18 16:24 63 20 193/88 94 Room Air 01/12/18 16:02 76 01/12/18 15:54 36.7 69 18 229/97 96 Room Air Physical Exam: Constitutional: appearance nourished, healthy and normal Ears, Nose, Mouth and Throat: mucous membranes moist, no injection and skin normal, eyes normal Cardiovascular: normal S-1 and S-2 and regular rate and rhythm Respiratory: clear to auscultation (CTA) and no rales, rhonchi or wheeze Musculoskeletal: no peripheral edema and good distal pulses Skin: no stigmata of neurocutaneous disease noted and normal and intact Eyes: extraocular muscles intact (EOMI) and pupils equal, round and reactive to light (PERRL) NEUROLOGIC EXAMINATION: Mental status: Alert and interactive Oriented to full date and location, can stick out tongue, point to ceiling with her right hand, close eyes. repeats no ifs ands or buts, know Mahesh, at [facility], year 2018, it is winter. Oriented to person Speech fluent with no evidence of aphasia Cranial Nerves smile eye brow raise symmetric Reflexes: Deep tendon reflexes were symmetrical and graded 2/5. Plantar responses were flexor. Sensory: no sensory deficits, with cool or vibration Coordination: finger to nose with no bipass Gait/Stance: Posture normal. Gait normal: with steady with steps, base, turning tandem gait. Motor: Negative for pronator drift of out stretched arms with eyes closed. Strength: hand retail sales assistant, biceps triceps 5/5 bilaterally, hip flex plantar flex ext 5/5 bilaterally Laboratory Results Past 24 Hours: 01/13/18 06:11 Red Blood Count 3.83, Mean Corpuscular Volume 95.6, Mean Corpuscular Hemoglobin 32.9, Mean Corpuscular Hemoglobin Concent 34.4, Mean Platelet Volume 11.0, Neutrophils (%) (Auto) 57.8, Lymphocytes (%) (Auto) 30.1, Monocytes (%) (Auto) 9.6, Eosinophils (%) (Auto) 1.9, Basophils (%) (Auto) 0.3, Neutrophils # (Auto) 2.12, Lymphocytes # (Auto) 1.10, Monocytes # (Auto) 0.35, Eosinophils # (Auto) 0.07, Basophils # (Auto) 0.01 01/13/18 06:11 Test 01/12/18 16:05 01/12/18 16:11 01/12/18 16:15 01/12/18 18:15 Bedside Glucose 125 mg/dl (70-90) Prothrombin Time 10.1 SECONDS (9.0-12.0) Prothromb Time International Ratio 1.0 (0.9-1.1) Activated Partial Thromboplast Time 24.9 SECONDS (21.0-31.0) Partial Thromboplastin Ratio 1.0 Estimated Average Glucose 114 mg/dl Hemoglobin A1c 5.6 % (4.5-5.6) Magnesium Level 2.4 mg/dl (1.8-2.4) Total Bilirubin 0.9 mg/dl (0.2-1) Direct Bilirubin 0.2 mg/dl (0-0.2) Aspartate Amino Transf (AST/SGOT) 19 U/L (15-37) Alanine Aminotransferase (ALT/SGPT) 29 U/L (12-78) Alkaline Phosphatase 95 U/L (45-117) Total Creatine Kinase 234 U/L (26-192) Creatine Kinase MB 2.2 ng/ml (0.5-3.6) Creatine Kinase MB Ratio 0.9 (0-3.0) Total Protein 8.0 gm/dl (6.4-8.2) Albumin 4.1 gm/dl (3.4-5.0) Bedside Hemoglobin 14.3 g/dl (12.0-16.0) Bedside Hematocrit 42 % (37-47) Bedside Sodium 141 mEq/L (135-144) Bedside Potassium 3.8 mEq/L (3.3-5.0) Bedside Chloride 104 mEq/L (101-112) Bedside Total CO2 25 mEq/l (24-31) Bedside Blood Urea Nitrogen 21 mg/dl (7-18) Bedside Creatinine 1.1 mg/dl (0.6-1.3) Bedside Glucose (other) 133 mg/dl (70-99) Bedside Ionized Calcium (Belkys) 1.19 mmol/l (1.12-1.32) Urine Color YELLOW Urine Appearance CLEAR (CLEAR) Urine pH 6.0 (4.5-7.5) Urine Specific [place] 1.011 (1.000-1.030) Urine Protein NEG (NEG) Urine Glucose (UA) NEG (NEG) Urine Ketones NEG (NEG) Urine Occult Blood NEG (NEG) Urine Nitrite NEG (NEG) Urine Bilirubin NEG (NEG) Urine Urobilinogen NEG (NEG) Urine Leukocyte Esterase NEG (NEG) Urine Opiates Screen NEG (NEG) Urine Methadone, Qualitative NEG (NEG) Urine Barbiturates NEG (NEG) Urine Phencyclidine (PCP) Level NEG (NEG) Ur Amphetamine/Methamphetamine NEG (NEG) MDMA (Ecstasy) Screen NEG (NEG) Urine Benzodiazepines Screen NEG (NEG) Urine Cocaine Metabolite NEG (NEG) Urine Marijuana (THC) NEG (NEG) Test 01/13/18 06:11 01/13/18 09:46 01/13/18 10:23 White Blood Count 3.66 K/uL (4.8-10.8) Red Blood Count 3.83 M/uL (4.2-5.4) Hemoglobin 12.6 g/dL (12.0-16.0) Hematocrit 36.6 % (37-47) Mean Corpuscular Volume 95.6 fL (80-100) Mean Corpuscular Hemoglobin 32.9 pg (25-34) Mean Corpuscular Hemoglobin Concent 34.4 g/dl (32-36) Platelet Count 242 K/uL (130-400) Mean Platelet Volume 11.0 fL (7.4-10.4) Neutrophils (%) (Auto) 57.8 % Lymphocytes (%) (Auto) 30.1 % Monocytes (%) (Auto) 9.6 % Eosinophils (%) (Auto) 1.9 % Basophils (%) (Auto) 0.3 % Neutrophils # (Auto) 2.12 K/uL (1.4-6.5) Lymphocytes # (Auto) 1.10 K/uL (1.2-3.4) Monocytes # (Auto) 0.35 K/uL (0.11-0.59) Eosinophils # (Auto) 0.07 K/uL (0-0.5) Basophils # (Auto) 0.01 K/uL (0-0.2) RDW Standard Deviation 44.3 fL (36.4-46.3) RDW Coefficient of Variation 12.7 % (11.5-14.5) Immature Granulocyte % (Auto) 0.3 % Immature Granulocyte # (Auto) 0.01 K/uL (0.00-0.02) Anion Gap 8.0 mmol/L (3-11) Est Creatinine Clear Calc Drug Dose 46.4 ml/min Estimated GFR () 64.0 Estimated GFR (Non- 55.2 BUN/Creatinine Ratio 15.3 (10-20) Calcium Level 8.5 mg/dl (8.5-10.1) Triglycerides Level 77 mg/dl (0-150) Cholesterol Level 171 mg/dl (0-200) HDL Cholesterol 84 mg/dl LDL Cholesterol, Calculated 72 mg/dl VLDL Cholesterol, Calculated 15 mg/dl Cholesterol/HDL Ratio 2.0 Troponin I < 0.015 ng/ml (0-0.045) Thyroid Stimulating Hormone (TSH) 1.460 uIu/ml (0.300-4.500) Imaging MRI brain combo- . No acute intracranial findings. Mild atrophy and minimal small vessel disease. carotid artery doppler- No evidence of a hemodynamically significant stenosis within the bilateral common carotid and internal carotid arteries. Equivocal stenosis of the proximal left external carotid artery. This may be artifactual. TTE- Normal LV chamber size with mild concentric LVH. * Normal LV systolic function, EF 55-60%. * No segmental left ventricular wall motion abnormalities are noted. * Grade I diastolic dysfunction. * Aortic valve sclerosis mild, without significant aortic valvular stenosis. * Intact interatrial septum. Impression 72 year old female with amnesia to traumatic event Plan 1. EEG pending 2. MRI combo with no stroke or lesion 3. EEG pending 4. lyte abnormalities currently pending 5. carotid doppler no significant stenosis 6. TTE no ASD 7. patient currently on aspirin 81 mg daily would continue 8. needs follow up with PCP for evaluation and monitoring of blood pressure 9. likely transient global amnesia-this is a diagnosis of exclusion 10. will need follow up with neurology 2-[address] Octavio Rordíguez or Melissa HATCH I have seen and discussed above patient with Dr Octavio Rodríguez, neurology Patient seen and case discussed with his two daughters and with Melissa Verde This is a patient with prexisting classic visual migraines who now presents with a typical Transient Global Amnesia event and a l ow grade headache in the setting of a stress situation but not of a primary psychiatric causation ie not a "dissociative reaction " and with negative exam imaging and eeg and who is now at baseline ( a few holes in memory persist and she will have an absolute period of amnesia that will never fill in ) She did have impressive hypertension on admission but no prior bp or significant medical issues and nothing for PRES on imaging Would ok to discharge today continue asa in lo dose follow up with pcp and with neurology in about three to four weeks Octavio Rodríguez MD
--- NOTE | 2018-01-13 13:11 | ELECTROENCEPHALOGRAPH REPORT ---
REQUESTING: Dr. Rodríguez. CLINICAL DIAGNOSIS: Probable transient global amnesia, question seizure disorder. ELECTROENCEPHALOGRAM DIAGNOSIS: Essentially normal during wakefulness. DESCRIPTION OF TRACING: This EEG was done as a bedside tracing and is of excellent technical quality with few or no muscle movement artifacts being seen. Photic stimulation was performed. Hyperventilation was not. Drowsiness and light sleep were not recorded. Video analysis of patient movement and behavior was also obtained and it indicates no abnormal or involuntary activity. Under these conditions, there is evidence for a normal background rhythm in the alpha range of up to 10 Hz of maximum frequency and 30 microvolts of maximum amplitude. This is maximum posterior head regions bilaterally symmetrical. Polymorphic mid frequency theta activity is seen over all head regions without clear focal or regional predominance. Anterior head region maximum bilaterally symmetrical low voltage fast activity in the beta range is present. Photic stimulation provoked some modest driving response without a photomyogenic or photoparoxysmal component. At no time during the waking tracing is there evidence for potentially epileptogenic activity in the form of polyspike or spike wave bursts, focal sharp waves or focal spikes. INTERPRETATION: This EEG is essentially normal during wakefulness without evidence for focal or generalized encephalopathy and without evidence for potentially epileptogenic activity.
[2018-01-13 15:17] VITALS: BP 168/78; PULSE 59; TEMP 36.9; O2SAT 97
--- NOTE | 2018-01-13 16:26 | Progress Note ---
Internal Med Progress Note Date of Service: Jan 13, 2018. Provider Documentation: SUBJECTIVE: The patient was seen and examined Admitted with Transient Global Amnesia in setting of High BP and probable Anxiety Symptoms resolved and no more recurrence Ambulating without any problem OBJECTIVE: Vital Signs-as noted below Exam: General-No distress at rest Eyes-normal ENT-normal Neck-supple Lungs-Clear to auscultate bilaterally Heart-Regular,no murmur appreciated Abdomen-Benign,no masses,bowel sound present Extremities-No edema Neuro-AAOx3 No focal neuro deficit Lab data as noted below. ASSESSMENT & PLAN: Transient Global Amnesia -CT head negative -telestroke eval by [facility] did not demonstrate high suspicion for stroke -due to persistence of symptoms, patient to be admitted for further work up -MRI brain-negative -carotid Doppler- negative - -TTE ::Normal LV chamber size with mild concentric LVH. * Normal LV systolic function, EF 55-60%. * No segmental left ventricular wall motion abnormalities are noted. * Grade I diastolic dysfunction. * Aortic valve sclerosis mild, without significant aortic valvular stenosis. * Intact interatrial septum. EEG-negative -lipid panel-noted -Neuro consult-appreciate input Episodic HTN Required IV Labetalol in ER May be contributing to the current symptoms Will start small dose of Amlodipine DYSLIPIDEMIA: -continue statin -check lipids CHRONIC RHINITIS: -continue Flonase and Claritin DVT PROPHYLAXIS Heparin SQ DISPOSITION Discharge today Vital Signs: Date Time Temp Pulse Resp B/P (MAP) Pulse Ox O2 Delivery O2 Flow Rate FiO2 01/13/18 16:00 Room Air 01/13/18 15:17 36.9 59 19 168/78 (108) 97 Room Air 01/13/18 12:07 36.7 73 20 145/75 (98) 98 Room Air 01/13/18 12:00 Room Air 01/13/18 07:43 37.1 57 16 156/77 (103) 97 Room Air 01/13/18 07:30 Room Air 01/13/18 04:00 Room Air 01/13/18 03:37 37.0 58 18 128/69 (88) 100 01/13/18 00:15 Room Air 01/12/18 23:21 36.7 58 17 146/73 (97) 96 Room Air 01/12/18 22:18 36.9 62 18 171/80 97 Room Air 01/12/18 20:00 63 16 145/81 94 Room Air 01/12/18 18:49 68 175/91 96 Room Air 01/12/18 18:01 69 20 183/92 95 Room Air 01/12/18 17:41 72 20 182/94 95 Room Air 01/12/18 17:16 69 20 169/89 92 Room Air 01/12/18 17:01 70 20 200/114 94 Room Air 01/12/18 16:46 65 18 195/103 91 Room Air 01/12/18 16:28 94 Room Air 01/12/18 16:24 63 20 193/88 94 Room Air Lab Results: Results Past 24 Hours Test 01/12/18 18:15 01/13/18 01:37 01/13/18 06:11 01/13/18 09:46 Range/Units Urine Color YELLOW Urine Appearance CLEAR CLEAR Urine pH 6.0 4.5-7.5 Urine Specific [place] 1.011 1.000-1.030 Urine Protein NEG NEG Urine Glucose (UA) NEG NEG Urine Ketones NEG NEG Urine Occult Blood NEG NEG Urine Nitrite NEG NEG Urine Bilirubin NEG NEG Urine Urobilinogen NEG NEG Urine Leukocyte Esterase NEG NEG Urine Opiates Screen NEG NEG Urine Methadone, Qualitative NEG NEG Urine Barbiturates NEG NEG Urine Phencyclidine (PCP) Level NEG NEG Ur Amphetamine/Methamphetamine NEG NEG MDMA (Ecstasy) Screen NEG NEG Urine Benzodiazepines Screen NEG NEG Urine Cocaine Metabolite NEG NEG Urine Marijuana (THC) NEG NEG Troponin I 0.022 < 0.015 0-0.045 ng/ml White Blood Count 3.66 4.8-10.8 K/uL Red Blood Count 3.83 4.2-5.4 M/uL Hemoglobin 12.6 12.0-16.0 g/dL Hematocrit 36.6 37-47 % Mean Corpuscular Volume 95.6 80-100 fL Mean Corpuscular Hemoglobin 32.9 25-34 pg Mean Corpuscular Hemoglobin Concent 34.4 32-36 g/dl Platelet Count 242 130-400 K/uL Mean Platelet Volume 11.0 7.4-10.4 fL Neutrophils (%) (Auto) 57.8 % Lymphocytes (%) (Auto) 30.1 % Monocytes (%) (Auto) 9.6 % Eosinophils (%) (Auto) 1.9 % Basophils (%) (Auto) 0.3 % Neutrophils # (Auto) 2.12 1.4-6.5 K/uL Lymphocytes # (Auto) 1.10 1.2-3.4 K/uL Monocytes # (Auto) 0.35 0.11-0.59 K/uL Eosinophils # (Auto) 0.07 0-0.5 K/uL Basophils # (Auto) 0.01 0-0.2 K/uL RDW Standard Deviation 44.3 36.4-46.3 fL RDW Coefficient of Variation 12.7 11.5-14.5 % Immature Granulocyte % (Auto) 0.3 % Immature Granulocyte # (Auto) 0.01 0.00-0.02 K/uL Sodium Level 140 136-145 mmol/L Potassium Level 3.8 3.5-5.1 mmol/L Chloride Level 108 98-107 mmol/L Carbon Dioxide Level 24 21-32 mmol/L Anion Gap 8.0 3-11 mmol/L Blood Urea Nitrogen 15 7-18 mg/dl Creatinine 1.01 0.60-1.20 mg/dl Est Creatinine Clear Calc Drug Dose 46.4 ml/min Estimated GFR () 64.0 Estimated GFR (Non- 55.2 BUN/Creatinine Ratio 15.3 10-20 Random Glucose 95 70-99 mg/dl Calcium Level 8.5 8.5-10.1 mg/dl Triglycerides Level 77 0-150 mg/dl Cholesterol Level 171 0-200 mg/dl HDL Cholesterol 84 mg/dl LDL Cholesterol, Calculated 72 mg/dl VLDL Cholesterol, Calculated 15 mg/dl Cholesterol/HDL Ratio 2.0 Thyroid Stimulating Hormone (TSH) 1.460 0.300-4.500 uIu/ml Test 01/13/18 14:00 Range/Units Vitamin B12 Level 423 211-911 pg/mL Folate 20.94 >5.38 ng/mL
[2018-01-13] MEDS ORDERED: NRV5 PO (16:27)
--- NOTE | 2018-01-13 16:30 | Discharge Instructions ---
Discharge Instructions Date of Service Jan 13, 2018. Admission Reason for Admission: Amnesia Discharge Discharge Diagnosis / Problem: Transient Global Amnesia,HTN Discharge Goals Goal(s): Prevent Disease Progression Activity Recommendations Activity Limitations: resume your previous activity . Instructions / Follow-Up Instructions / Follow-Up DR Landa on 01/17/18 at 12:45 PM.Will need neurology appointment in 3-4 weeks- Dr Rodríguez Current Hospital Diet Patient's current hospital diet: AHA Diet (Heart Healthy) Discharge Diet Recommended Diet: AHA Diet (Heart Healthy) Pending Studies Studies pending at discharge: no Laboratory Results Hemoglobin A1c Test 01/12/18 16:11 Range/Units Estimated Average Glucose 114 mg/dl Hemoglobin A1c 5.6 4.5-5.6 % Lipid Panel Test 01/13/18 06:11 Range/Units Triglycerides Level 77 0-150 mg/dl Cholesterol Level 171 0-200 mg/dl HDL Cholesterol 84 mg/dl Cholesterol/HDL Ratio 2.0 LDL Cholesterol, Calculated 72 mg/dl Medical Emergencies . Who to Call and When: Medical Emergencies: If at any time you feel your situation is an emergency, please call 911 immediately. . Non-Emergent Contact Non-Emergency issues call your: Primary Care Provider . Past History Medical & Surgical History: (1) Amnesia (2) Hypertension . "Provider Documentation" section prepared by Courtney Aragon. . VTE Core Measure Inpt VTE Proph given/why not?: Unfractionated heparin SQ
[2018-01-13] MEDS ORDERED: AMLODIPINE BESYLATE 5 MG TAB PO ONE (16:45)
[2018-01-13 17:03] VITALS: BP 168/78; PULSE 59; TEMP 36.9; O2SAT 97
--- NOTE | 2018-01-14 07:58 | Discharge Summary ---
Discharge Summary Date of Service Jan 14, 2018. Discharge Summary Admission Date: Jan 12, 2018 at 19:59 Discharge Date: Jan 13, 2018 Discharge Disposition: Home Principal Diagnosis: Transient Global Amnesia,HTN Secondary Diagnoses/Problems: Please see H&P and Hospital; progress note Consultations: Neurology Medication Reconciliation New Medications: Amlodipine Besylate (Amlodipine Besylate) 5 Mg Tab 5 MG PO QAM for 30 Days, #30 TAB Continued Medications: Aspirin (Aspirin Ec) 81 Mg Tab 81 MG PO DAILY Atorvastatin (Lipitor) 10 Mg Tab 10 MG PO DAILY, TAB Loratadine (Claritin) 10 Mg Tab 10 MG PO DAILY, TAB Multivitamins/Minerals (Mvi With Minerals) Tab 1 TAB PO DAILY, TAB Admission Information HPI (per Admitting provider): Patient is a 72 yo female who presented to the ER for confusion and amnesia that occurred earlier today at 13:45 PM. The patient was her usual self this morning, was called by her sister this morning to inform her that the patient's nephew was found unexpectedly in his apartment today, and the patient subsequently got in the car and drove to her sister's home to be with family. The patient's daughter states she met there as well, and at 13:45 they were planning to leave when the patient turned to her daughter and was confused about how she got there and whether she drove or not. The daughter states the patient drove back to her home with her daughter driving closely in another vehicle to monitor the patient, and that once they came to the patient's home the patient could not recall any events from the day, she kept asking what happened and could not retain the fact that her nephew was and the events of today and yesterday could not be recalled. In the ER she was evaluated by [facility] and does not appear to have a CVA, but due to the persistent amnesia and the inability to recall events from today and the last few days, the patient was referred for admission and further workup. Patient only complains of a headache and some photophobia which is unusual for the patient. She was also found to have elevated BP which is not usual for the patient. Otherwise she has been in her usual health, no recent illness or sick contacts, no recent medication changes. Past Medical/Surgical History PMHx: Dyslipidemia SurgHx: Colonoscopy Family History Father: DM, CAD Mother: Cancer Social History Smoking Status: Never Smoker Smokeless Tobacco Use: No Alcohol Use: occasionally Drug Use: none Marital Status: Housing status: lives with family Occupational Status: retired Immunizations History of Influenza Vaccine: Yes History of Tetanus Vaccine?: Yes Multi-Drug Resistant Organisms History of MDRO: No Allergies Coded Allergies: Mercury (Verified Allergy, Intermediate, URBINA EYES, 01/12/18) Home Medications Scheduled Aspirin (Aspirin Ec), 81 MG PO DAILY Atorvastatin (Lipitor), 10 MG PO DAILY Loratadine (Claritin), 10 MG PO DAILY Multivitamins/Minerals (Mvi With Minerals), 1 TAB PO DAILY Review of Systems Constitutional: No fever, No chills, No sweats, No weight loss Eyes: No worsening of vision, No eye pain ENT: No hearing loss, No sore throat, No trouble swallowing Respiratory: No cough, No sputum, No wheezing, No shortness of breath Cardiovascular: No chest pain, No edema, No palpitations Abdomen: No pain, No nausea, No vomiting, No diarrhea, No constipation Musculoskeletal: No joint pain, No muscle pain, No problem reported Genitourinary - Female: No dysuria, No urinary frequency, No urinary urgency, No urinary incontinence Neurologic: + memory loss, No paralysis, No weakness, No numbness/tingling, No balance problems Psychiatric: No depression symptoms, No anxiety, No insomnia Endocrine: No fatigue, No excessive thirst, No excessive urination Hematologic / Lymphatic: No abnormal bleeding/bruising, No clotting problems, No problem reported Integumentary: No rash, No itch, No new/changing skin lesions Physical Ex - H&P Physical Exam Vital Signs Date Time Temp Pulse Resp B/P (MAP) Pulse Ox O2 Delivery O2 Flow Rate FiO2 01/12/18 18:49 68 175/91 96 Room Air 01/12/18 18:01 69 20 183/92 95 Room Air 01/12/18 17:41 72 20 182/94 95 Room Air 01/12/18 17:16 69 20 169/89 92 Room Air 01/12/18 17:01 70 20 200/114 94 Room Air 01/12/18 16:46 65 18 195/103 91 Room Air 01/12/18 16:28 94 Room Air 01/12/18 16:24 63 20 193/88 94 Room Air 01/12/18 16:02 76 01/12/18 15:54 36.7 69 18 229/97 96 Room Air General Appearance: WD/WN, no apparent distress Head: normocephalic, atraumatic Eyes: PERRL, EOMI, sclerae normal (conjunctivae clear) ENT: hearing grossly normal Neck: supple, no adenopathy, thyroid normal, no JVD, no carotid bruits, trachea midline Respiratory/Chest: chest non-tender, lungs clear, normal breath sounds, no respiratory distress Cardiovascular: regular rate, rhythm, no edema, no gallop, no JVD, no murmur Abdomen/GI: normal bowel sounds, non tender, soft, no organomegaly (no hepatosplenomegaly) Back: normal inspection, no CVA tenderness Extremities/Musculoskelatal: no calf tenderness, normal capillary refill, no pedal edema, non-tender Neurologic/Psych: armature bander II-XII nml as tested, no motor/sensory deficits, alert, normal mood/affect, oriented x 3 Skin: normal color, warm/dry, no rash Diagnostics - H&P Diagnostics Laboratory Results Results Past 24 Hours Test 01/12/18 16:05 01/12/18 16:11 01/12/18 16:15 01/12/18 18:15 Range/Units Bedside Glucose 125 70-90 mg/dl White Blood Count 5.55 4.8-10.8 K/uL Red Blood Count 4.31 4.2-5.4 M/uL Hemoglobin 14.3 12.0-16.0 g/dL Hematocrit 40.4 37-47 % Mean Corpuscular Volume 93.7 80-100 fL Mean Corpuscular Hemoglobin 33.2 25-34 pg Mean Corpuscular Hemoglobin Concent 35.4 32-36 g/dl Platelet Count 271 130-400 K/uL Mean Platelet Volume 10.5 7.4-10.4 fL Neutrophils (%) (Auto) 73.7 % Lymphocytes (%) (Auto) 18.9 % Monocytes (%) (Auto) 6.1 % Eosinophils (%) (Auto) 0.7 % Basophils (%) (Auto) 0.2 % Neutrophils # (Auto) 4.09 1.4-6.5 K/uL Lymphocytes # (Auto) 1.05 1.2-3.4 K/uL Monocytes # (Auto) 0.34 0.11-0.59 K/uL Eosinophils # (Auto) 0.04 0-0.5 K/uL Basophils # (Auto) 0.01 0-0.2 K/uL RDW Standard Deviation 42.3 36.4-46.3 fL RDW Coefficient of Variation 12.4 11.5-14.5 % Immature Granulocyte % (Auto) 0.4 % Immature Granulocyte # (Auto) 0.02 0.00-0.02 K/uL Prothrombin Time 10.1 9.0-12.0 SECONDS Prothromb Time International Ratio 1.0 0.9-1.1 Activated Partial Thromboplast Time 24.9 21.0-31.0 SECONDS Partial Thromboplastin Ratio 1.0 Sodium Level 139 136-145 mmol/L Potassium Level 3.7 3.5-5.1 mmol/L Chloride Level 106 98-107 mmol/L Carbon Dioxide Level 23 21-32 mmol/L Anion Gap 10.0 17.0 16-25 mmol/L Blood Urea Nitrogen 19 7-18 mg/dl Creatinine 1.16 0.60-1.20 mg/dl Est Creatinine Clear Calc Drug Dose 41.2 ml/min Estimated GFR () 54.1 Estimated GFR (Non- 46.7 BUN/Creatinine Ratio 16.7 10-20 Random Glucose 128 70-99 mg/dl Calcium Level 9.6 8.5-10.1 mg/dl Magnesium Level 2.4 1.8-2.4 mg/dl Total Bilirubin 0.9 0.2-1 mg/dl Direct Bilirubin 0.2 0-0.2 mg/dl Aspartate Amino Transf (AST/SGOT) 19 15-37 U/L Alanine Aminotransferase (ALT/SGPT) 29 12-78 U/L Alkaline Phosphatase 95 45-117 U/L Total Creatine Kinase 234 26-192 U/L Creatine Kinase MB 2.2 0.5-3.6 ng/ml Creatine Kinase MB Ratio 0.9 0-3.0 Troponin I 0.015 0-0.045 ng/ml Total Protein 8.0 6.4-8.2 gm/dl Albumin 4.1 3.4-5.0 gm/dl Bedside Hemoglobin 14.3 12.0-16.0 g/dl Bedside Hematocrit 42 37-47 % Bedside Sodium 141 135-144 mEq/L Bedside Potassium 3.8 3.3-5.0 mEq/L Bedside Chloride 104 101-112 mEq/L Bedside Total CO2 25 24-31 mEq/l Bedside Blood Urea Nitrogen 21 7-18 mg/dl Bedside Creatinine 1.1 0.6-1.3 mg/dl Bedside Glucose (other) 133 70-99 mg/dl Bedside Ionized Calcium (Belkys) 1.19 1.12-1.32 mmol/l Urine Color YELLOW Urine Appearance CLEAR CLEAR Urine pH 6.0 4.5-7.5 Urine Specific [place] 1.011 1.000-1.030 Urine Protein NEG NEG Urine Glucose (UA) NEG NEG Urine Ketones NEG NEG Urine Occult Blood NEG NEG Urine Nitrite NEG NEG Urine Bilirubin NEG NEG Urine Urobilinogen NEG NEG Urine Leukocyte Esterase NEG NEG Urine Opiates Screen NEG NEG Urine Methadone, Qualitative NEG NEG Urine Barbiturates NEG NEG Urine Phencyclidine (PCP) Level NEG NEG Ur Amphetamine/Methamphetamine NEG NEG MDMA (Ecstasy) Screen NEG NEG Urine Benzodiazepines Screen NEG NEG Urine Cocaine Metabolite NEG NEG Urine Marijuana (THC) NEG NEG Impression - H&P Impression Assessment and Plan AMS: RETROGRADE AMNESIA: -CT head negative -telestroke eval by [facility] did not demonstrate high suspicion for stroke -due to persistence of symptoms, patient to be admitted for further work up -MRI brain -carotid doppler -TTE -lipid panel -continue on ASA and statin; can evaluate need for plavix depending on additional workup if patient is found to have a TIA or CVA -no history of HTN, although BP was elevated on arrival -Neuro consult -PRN analgesia for headache DYSLIPIDEMIA: -continue statin -check lipids CHRONIC RHINITIS: -continue flonase and claritin Level of Care Telemetry Advanced Directives Existing Advance Directive: Yes Resuscitation Status FULL RESUSCITATION (If there is a meaningful chance of recovery only) VTE Prophylaxis VTE Risk Assessment Done? Y/N: Yes Risk Level: Moderate Physical Exam (per Admitting): General Appearance: WD/WN, no apparent distress Head: normocephalic, atraumatic Eyes: PERRL, EOMI, sclerae normal (conjunctivae clear) ENT: hearing grossly normal Neck: supple, no adenopathy, thyroid normal, no JVD, no carotid bruits, trachea midline Respiratory/Chest: chest non-tender, lungs clear, normal breath sounds, no respiratory distress Cardiovascular: regular rate, rhythm, no edema, no gallop, no JVD, no murmur Abdomen/GI: normal bowel sounds, non tender, soft, no organomegaly (no hepatosplenomegaly) Back: normal inspection, no CVA tenderness Extremities/Musculoskelatal: no calf tenderness, normal capillary refill, no pedal edema, non-tender Neurologic/Psych: armature bander II-XII nml as tested, no motor/sensory deficits, alert , normal mood/affect, oriented x 3 Skin: normal color, warm/dry, no rash Hospital Course Transient Global Amnesia -CT head negative -telestroke eval by [facility] did not demonstrate high suspicion for stroke -due to persistence of symptoms, patient to be admitted for further work up -MRI brain-negative -carotid Doppler- negative - -TTE ::Normal LV chamber size with mild concentric LVH. * Normal LV systolic function, EF 55-60%. * No segmental left ventricular wall motion abnormalities are noted. * Grade I diastolic dysfunction. * Aortic valve sclerosis mild, without significant aortic valvular stenosis. * Intact interatrial septum. EEG-negative -lipid panel-noted -Neuro consult-appreciate input Episodic HTN Required IV Labetalol in ER May be contributing to the current symptoms Will start small dose of Amlodipine DYSLIPIDEMIA: -continue statin -check lipids CHRONIC RHINITIS: -continue Flonase and Claritin DVT PROPHYLAXIS Heparin SQ DISPOSITION Discharge today Total time spent on discharge = 35 minutes This includes examination of the patient, discharge planning, medication reconciliation, and communication with other providers. Discharge Instructions Date of Service Jan 13, 2018. Admission Reason for Admission: Amnesia Discharge Discharge Diagnosis / Problem: Transient Global Amnesia,HTN Discharge Goals Goal(s): Prevent Disease Progression Activity Recommendations Activity Limitations: resume your previous activity . Instructions / Follow-Up Instructions / Follow-Up DR Landa on 01/17/18 at 12:45 PM.Will need neurology appointment in 3-4 weeks- Dr Rodríguez Current Hospital Diet Patient's current hospital diet: AHA Diet (Heart Healthy) Discharge Diet Recommended Diet: AHA Diet (Heart Healthy) Pending Studies Studies pending at discharge: no Laboratory Results Hemoglobin A1c Test 01/12/18 16:11 Range/Units Estimated Average Glucose 114 mg/dl Hemoglobin A1c 5.6 4.5-5.6 % Lipid Panel Test 01/13/18 06:11 Range/Units Triglycerides Level 77 0-150 mg/dl Cholesterol Level 171 0-200 mg/dl HDL Cholesterol 84 mg/dl Cholesterol/HDL Ratio 2.0 LDL Cholesterol, Calculated 72 mg/dl Medical Emergencies . Who to Call and When: Medical Emergencies: If at any time you feel your situation is an emergency, please call 911 immediately. . Non-Emergent Contact Non-Emergency issues call your: Primary Care Provider . Past History Medical & Surgical History: (1) Amnesia (2) Hypertension . "Provider Documentation" section prepared by Courtney Aragon. . VTE Core Measure Inpt VTE Proph given/why not?: Unfractionated heparin SQ <Electronically signed by Courtney Aragon M.D.> Signed: 01/13/18 1630 Additional Copies To Marianne Landa D.O.
[2018-01-14] MEDS ORDERED: AMLODIPINE BESYLATE 5 MG TAB PO SCH (09:00)
--- NOTE | 2018-01-23 06:35 | EDITING REQUIRED CODING QUERY ---
SUPPORTING DIAGNOSIS NEEDED Dr. Ponce, A supporting diagnosis is required for the test/procedure performed on this patient in order for us to be reimbursed by the patient's insurance. Please provide a supporting diagnosis for the following test/procedure listed below next to the test name along with your signature. *If there is no additional diagnosis for this patient that would support the following test/procedure please document that below next to the test/procedure. Test(s)/Procedure(s) that require a supporting diagnosis: * ([id number]) SPEECH SOUND LANG COMPREHEN DIAGNOSIS: DATE OF SERVICE: 01/13/18 Provider Signature: Date: Thank you Alejandro Foster [facility] Information [facility] Once completed, please kindly fax back to [phone] For questions please call [phone]
== END 2018-01-13 17:34 | disposition home or self-care (01) ==
LOC: C.EDB 15:50 → C.2T 19:59 → ENRESERV 20:17
PROVIDERS: ADMIT Internal Medicine; ATTEND Internal Medicine
DX: G45.4 Transient global amnesia (principal); I10 Essential (primary) hypertension; E78.5 Hyperlipidemia, unspecified; J31.0 Chronic rhinitis; Z79.82 Long term (current) use of aspirin; Z83.3 Family history of diabetes mellitus; Z82.49 Family history of ischemic heart disease and other diseases of the circulatory system; Z79.899 Other long term (current) drug therapy